=== PATIENT | female | born 1975 | race Caucasian/White ===

== ENCOUNTER 2019-11-15 14:42 | Emergency (ER) | payer OTHER ==
[2019-11-15] MEDS ORDERED: HYDROmorphone 0.5 MG/0.5 ML Syringe IVPUSH ONE (14:55)
[2019-11-15] MEDS ORDERED: Sodium Chloride 0.9% 1,000 ML IV ONE (14:56)
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
--- NOTE | 2019-11-15 15:10 | CR ---
Wrist Comp Min 3V Rt CLINICAL HISTORY: Pain, trauma FINDINGS: There is no acute fracture or dislocation within the right wrist. Impression: Negative
== END 2019-11-15 16:17 | disposition home or self-care (01) ==
LOC: JP.ED 14:42
DX: S45.901A Unspecified injury of unspecified blood vessel at shoulder and upper arm level, right arm, initial encounter (principal); S60.811A Abrasion of right wrist, initial encounter; R23.0 Cyanosis; Z88.8 Allergy status to other drugs, medicaments and biological substances; Z88.1 Allergy status to other antibiotic agents; Z88.0 Allergy status to penicillin; Z88.2 Allergy status to sulfonamides; Z79.899 Other long term (current) drug therapy; W22.8XXA Striking against or struck by other objects, initial encounter
CPT/HCPCS: 73110; 96374; 99283; J1170; J7030